=== PATIENT | male | born 1935 | race Caucasian/White ===

== ENCOUNTER 2018-08-05 07:00 | Inpatient (IN) ==
--- NOTE | 2018-07-23 14:35 | PAT Medication Instructions ---
Medication Instructions Date of Service July 23, 2018 Home Medications Circumin 2 tab PO QAM Flaxseed 3 - 4 tab PO DAILY Milk Thistle 1 tab PO QAM Natural Antibiotics 1 tab PO QAM Serrapeptase 2 tab PO QAM Vitamin B12 1 tab PO QAM Vitamin B6 1 tab PO QAM coenzyme Q10 [Co Q-10] 100 mg PO QAM ibuprofen [Advil] 200 mg PO BID lorazepam [Ativan] 0.5 - 1 mg PO DAILY PRN vitamin B complex 1 cap PO QAM ASK your surgeon for instructions ibuprofen [Advil] 200 mg PO BID STOP taking 2 weeks before surgery (or as soon as possible if surgery is within 2 weeks) Circumin 2 tab PO QAM Flaxseed 3 - 4 tab PO DAILY Milk Thistle 1 tab PO QAM Natural Antibiotics 1 tab PO QAM Serrapeptase 2 tab PO QAM coenzyme Q10 [Co Q-10] 100 mg PO QAM DO NOT take the morning of surgery Vitamin B12 1 tab PO QAM Vitamin B6 1 tab PO QAM vitamin B complex 1 cap PO QAM Take morning of surgery With a small sip of water, OTHERWISE NOTHING TO EAT OR DRINK AFTER MIDNIGHT: lorazepam [Ativan] 0.5 - 1 mg PO DAILY PRN (if needed) Other Notes If you have any questions please call us at [phone] or [phone] or [phone] or [phone]
--- NOTE | 2018-07-24 12:41 | Anesthesiology Consultation ---
Date of Service July 24, 2018 Assessment & Plan (1) Encounter for pre-operative examination: - PCP= 07/29/18= "cleared for surgical procedure as scheduled." Chart Review Chart Review: Acceptable Risk for Surgery and Patient seen in Pre Admission Testing Teaching & Discussion Pre-Anesthesia Teaching/Discussion Notes: Instructed NPO after midnight before surgery,except medications with 15 cc of water. Medication instructions provided according to the PAT guidelines. History Surgery Operation Date: 08/05/18 09:40 Proposed Procedures p Left Total Hip Arthroplasty - Jeremy Khan Eb Operation Date: 08/05/18 12:40 Proposed Procedures p Left Total Hip Arthroplasty - Jeremy Parson Height/Weight Height: 6 ft 2 in Weight: 93.8 kg Allergies Allergy/AdvReac Type Severity Reaction Status Date / Time ciprofloxacin [From Cipro] AdvReac Unknown AGGRAVATES Verified 07/19/18 09:53 ARTHRITIS PER PT Sulfa (Sulfonamide AdvReac Unknown WEAKNESS Verified 07/19/18 09:52 Antibiotics) ARMS-JOINT PROBLEMS Medications Home Medications Medication Instructions Recorded Confirmed Last Taken Circumin 2 tab PO QAM 07/19/18 07/19/18 Unknown Flaxseed 3 - 4 tab PO DAILY 07/19/18 07/19/18 Unknown Milk Thistle 1 tab PO QAM 07/19/18 07/19/18 Unknown Natural Antibiotics 1 tab PO QAM 07/19/18 07/19/18 Unknown Serrapeptase 2 tab PO QAM 07/19/18 07/19/18 Unknown Vitamin B12 1 tab PO QAM 07/19/18 07/19/18 Unknown Vitamin B6 1 tab PO QAM 07/19/18 07/19/18 Unknown coenzyme Q10 [Co Q-10] 100 mg PO QAM 07/19/18 07/19/18 Unknown ibuprofen [Advil] 200 mg PO BID 07/19/18 07/19/18 Unknown lorazepam [Ativan] 0.5 - 1 mg PO DAILY PRN 07/19/18 07/19/18 Unknown vitamin B complex 1 cap PO QAM 07/19/18 07/19/18 Unknown Bone restore 07/24/18 Unknown Eys Formula 07/24/18 Unknown Nattokinase enzyme 07/24/18 Unknown Nitic oxide fizz powder 07/24/18 Unknown Probiotic 07/24/18 Unknown Ray colostrum powder 07/24/18 Unknown alpha lipoic acid 07/24/18 Unknown digestive enzymes 07/24/18 Unknown garlic 07/24/18 Unknown potassium 07/24/18 Unknown vitamin [id number] acid 07/24/18 Unknown Past Medical History Medical History Diverticular disease [place] (hard of hearing) Osteoarthritis Prostate cancer S/P PROSTATECTOMY/RADIATION Past Family History Family History Aunt Family history of esophageal cancer Past Surgical History Surgical History History of appendectomy History of bowel resection 2/2 DIVERTICILITIS History of herniorrhaphy History of prostatectomy History of tonsillectomy Past Anesthesia History No Hx of Anesthesia Complications and No Family Hx of Anesthesia Complications History of PONV No Motion Sickness Screening History of Motion Sickness: No Social History Smoking Status: Former smoker tobacco type: cigarettes and cigars Do You Dip or Chew Tobacco: No Smoking End Date: QUIT 40+ YEARS AGO Hx Alcohol Use: Yes Alcohol type: beer and wine alcohol intake frequency: holidays/special occasions only Hx Substance Use: No Exercise / Class Metabolic Activity III < 4 Walking/Shop/Light housework (USES CANE PRN) Review of Systems Patient denies chest pain, shortness of breath, dyspnea on exertion, joint pain, reflux, cough, wheezing, palpitations. Physical Exam Vital Signs VITALS BP 132/84 P 67 TEMP 97.7 SP02 98%RA RESP 18 PHYSICAL Full neck and c-spine range of motion. Full TMJ range of motion. TMD 2 finger breaths Mallampati Score 3 Dentition: intact Lungs: clear throughout to auscultation Cardiac: regular rate and rhythm, no murmurs noted Spine: normal Carotid arteries: negative bruit Extremities: no edema Testing Electrocardiogram Date: 07/24/18 NSR at 68bpm. LAD. NS IVCD. NS STA. Chest X-Ray Date: 07/24/18 Findings: + NAD Degenerative changes are present within the dorsal spine with bridging calcification of the anterior longitudinal ligament Laboratory Results 07/24/18 13:00 07/24/18 13:00 Blood Type A Positive 07/24/18 13:00 Antibody Screen NEGATIVE 07/24/18 13:00 PT 10.9 Seconds (9.0-12.0) 07/24/18 13:00 INR 1.1 (0.9-1.1) 07/24/18 13:00 APTT 25.5 Seconds (21.0-31.0) 07/24/18 13:00 Hemoglobin A1c 5.8 % (4.5-5.6) H 07/24/18 13:00 Urine Color Dark Yellow 07/24/18 13:00 Urine Appearance Clear (Clear) 07/24/18 13:00 Urine pH 7.0 (4.5-7.5) 07/24/18 13:00 Ur Specific [place] 1.024 (1.000-1.030) 07/24/18 13:00 Urine Protein Negative (Negative) 07/24/18 13:00 Urine Glucose (UA) Negative (Negative) 07/24/18 13:00 Urine Ketones Trace (Negative) H 07/24/18 13:00 Urine Nitrite Negative (Negative) 07/24/18 13:00 Ur Leukocyte Esterase Negative (Negative) 07/24/18 13:00 07/24/18 13:00 Urine Culture - Final Urine,Clean Catch No growth - less than 1,000 colonies/mL.
--- NOTE | 2018-07-24 13:39 | XRay Report ---
XR chest Pre-admission PA/Lat CLINICAL HISTORY: Preoperative chest COMPARISON STUDY: No previous studies for comparison. FINDINGS: The cardiac and mediastinal contours are normal. There is no evidence of focal pulmonary co nsolidation. There is no evidence of failure. No pleural effusions are visualized.[ Degenerative junior ges are present within the dorsal spine with bridging calcification of the anterior longitudinal liga ment IMPRESSION: No active disease in the chest. Electronically signed by: Tod Alexandre M.D. 07/24/2018 1:38 PM
[2018-07-24 14:15] LABS: Appearance Urine Clear (Clear); Bilirubin Urine Negative (Negative); Blood Urine Negative (Negative); Color Urine Dark Yellow; Glucose Urine UA Negative (Negative); Ketones Urine Trace (Negative); Leukocyte Esterase Urine Negative (Negative); Nitrite Urine Negative (Negative); Protein Urine Negative (Negative); Specific Gravity Urine 1.024 (1.000-1.030); Urobilinogen Urine Negative (Negative)
[2018-07-24 14:18] LABS: Basophils # (auto) 0.07 K/uL (0-0.2); Basophils % (auto) 0.8 %; Eosinophils # (auto) 0.39 K/uL (0-0.5); Eosinophils % (auto) 4.3 %; Hematocrit (blood only) 39.5 % (42-52); Hemoglobin 12.9 g/dL (14.0-18.0); Immature Granulocytes # (auto) 0.02 K/uL (0.00-0.02); Immature Granulocytes % (auto) 0.2 %; Mean Corpuscular Hgb Conc 32.7 g/dL (32-36); Mean Corpuscular Volume 96.8 fL (80-100); Mean Platelet Volume 10.6 fL (7.4-10.4); Monocytes # (auto) 0.84 K/uL (0.11-0.59); Monocytes % (auto) 9.3 %; Neutrophils # (auto) 5.83 K/uL (1.4-6.5); Neutrophils % (auto) 64.4 %; Platelet Count 240 K/uL (130-400); RDW Coefficient of Variation 13.3 % (11.5-14.5); RDW Standard Deviation 46.7 fL (36.4-46.3); Red Blood Count 4.08 M/uL (4.7-6.1); White Blood Count 9.05 K/uL (4.8-10.8)
[2018-07-24 14:21] LABS: Albumin Level 3.9 gm/dl (3.4-5.0); BUN Creatinine Ratio 16.5 (10-20); Calcium 9.2 mg/dl (8.5-10.1); Est GFR (African American) 53.4; Est GFR (Non-African American) 46.1; Potassium 4.1 mmol/L (3.5-5.1)
[2018-07-24 14:24] LABS: Bilirubin,Total 0.4 mg/dl (0.2-1); Total Protein 7.9 gm/dl (6.4-8.2)
[2018-07-24 14:25] LABS: INR 1.1 (0.9-1.1); Partial Thromboplastin Ratio 0.9; Partial Thromboplastin Time 25.5 Seconds (21.0-31.0); Prothrombin Time 10.9 Seconds (9.0-12.0)
[2018-07-24 15:41] LABS: Estimated Average Glucose 120 mg/dl; Hemoglobin A1C 5.8 % (4.5-5.6)
--- NOTE | 2018-08-04 09:28 | History & Physical Report ---
Date of Service August 04, 2018 Assessment & Plan (1) Degenerative joint disease of left hip: Pt is to be admitted and undergo Left ELOISA. History of Present Illness Chief Complaint: Left hip pain Primary Care Provider: Delfina Steele Pt having severe left hip pain for years. cant do adls, has tried nsaids and PT. pt is ready for left ELOISA. Allergies Allergy/AdvReac Type Severity Reaction Status Date / Time ciprofloxacin [From Cipro] AdvReac Unknown AGGRAVATES Verified 07/19/18 09:53 ARTHRITIS PER PT Sulfa (Sulfonamide AdvReac Unknown WEAKNESS Verified 07/19/18 09:52 Antibiotics) ARMS-JOINT PROBLEMS Home Medications Home Medications Medication Instructions Recorded Confirmed Type Circumin 2 tab PO QAM 07/19/18 07/19/18 History Flaxseed 3 - 4 tab PO DAILY 07/19/18 07/19/18 History Milk Thistle 1 tab PO QAM 07/19/18 07/19/18 History Natural Antibiotics 1 tab PO QAM 07/19/18 07/19/18 History Serrapeptase 2 tab PO QAM 07/19/18 07/19/18 History Vitamin B12 1 tab PO QAM 07/19/18 07/19/18 History Vitamin B6 1 tab PO QAM 07/19/18 07/19/18 History coenzyme Q10 [Co Q-10] 100 mg PO QAM 07/19/18 07/19/18 History ibuprofen [Advil] 200 mg PO BID 07/19/18 07/19/18 History lorazepam [Ativan] 0.5 - 1 mg PO DAILY PRN 07/19/18 07/19/18 History vitamin B complex 1 cap PO QAM 07/19/18 07/19/18 History Bone restore 07/24/18 History Eys Formula 07/24/18 History Nattokinase enzyme 07/24/18 History Nitic oxide fizz powder 07/24/18 History Probiotic 07/24/18 History Ray colostrum powder 07/24/18 History alpha lipoic acid 07/24/18 History digestive enzymes 07/24/18 History garlic 07/24/18 History potassium 07/24/18 History vitamin [id number] acid 07/24/18 History Past Med/Surg History Medical History Diverticular disease [place] (hard of hearing) Osteoarthritis Prostate cancer S/P PROSTATECTOMY/RADIATION Surgical History History of appendectomy History of bowel resection 2/2 DIVERTICILITIS History of herniorrhaphy History of prostatectomy History of tonsillectomy Family History Aunt Family history of esophageal cancer Social History Preferred Language: Tongan Communication Ability: Effective Retail Services Professional Required: No Beliefs That Will Affect Care: None Current Living Situation: Spouse Other Information That Helps Us Care for You: No Feels Safe at Home: Yes Safety Concerns: Feels Safe At This Time Smoking Status: Former smoker Hx Alcohol Use: Yes Hx Substance Use: No Physical Exam Constitutional: WD/WN, vitals as above Neck: trachea midline, no thyromegaly Respiratory: normal respiratory effort, lungs clear to auscultation Cardiovascular: RRR, no murmur, no edema Gastrointestinal (Abdomen): normal bowel sounds, soft, nontender, no hepatosplenomegaly Musculoskeletal: Hip: + limited ROM of hip and + hip ROM with crepitation
[~2018-08-05 07:00] MED LIST: ACETAMINOPHEN 500 MG TAB PO SCH; BUPIVACAINE 0.5 % 5 MG/1 ML PF 10ML VIAL ONE; CEFAZOLIN 2000MG 2,000 MG/15 ML SYR IV SCH; CeleBREX 200 MG CAP PO SCH; FAMOTIDINE 20 MG TAB PO SCH; GABAPENTIN 300 MG x 3 PO SCH; LR 500ML BOLUS, THEN 15ML/HR IV SCH; LR 60ML/HR IV SCH; METOCLOPRAMIDE HCL 10 MG TABLET PO SCH; ROPIVACAINE 0.5% HCL/PF 150 MG, BUPIVACAINE 0.5% MPF 30 ML, EPINEPHrine 30MG/30ML (OR U... INFIL SCH; TRANEXAMIC ACID 1,000 MG **IV Intra-op IV SCH; TRANEXAMIC ACID 1,000 MG **IV Pre-op IV SCH; dexAMETHasone 4 MG TAB PO SCH
[2018-08-05] MEDS ORDERED: PROPOFOL IV EMULSION 10 MG/ML 20 ML VIAL IV ONE ×2 (07:52→09:54)
[2018-08-05] MEDS ORDERED: LIDOCAINE HCL 2% 2 ML VIAL/AMP(20MG/ML) INFIL ONE (07:52)
[2018-08-05] MEDS ORDERED: MIDAZOLAM HCL 1 MG/ML 2ML VIAL ONE (07:53)
[2018-08-05] MEDS ORDERED: fentaNYL citrate 100 MCG/2 ML VIAL ONE (07:53)
--- NOTE | 2018-08-05 08:24 | History & Physical Bridge Note ---
Date of Service August 05, 2018 History & Physical Bridge Note I have examined the patient, reviewed the History & Physical and in the interval since the performance of the History & Physical I have noted the following changes of clinical significance: no changes noted
[2018-08-05] MEDS ORDERED: ORTHO JOINT ANESTHETIC ONE (08:41)
[2018-08-05] MEDS ORDERED: BACITRACIN INJ 50,000 UNIT VIAL ONE (08:41)
[2018-08-05] MEDS ORDERED: POVIDONE-IODINE OP SOLN 30 ML BTL ONE (08:42)
[2018-08-05] MEDS ORDERED: fentaNYL citrate 100 MCG/2 ML VIAL IV PRN (09:00)
[2018-08-05] MEDS ORDERED: ePHEDrine sulfate 50 MG/ML AMP IV PRN (09:00)
[2018-08-05] MEDS ORDERED: ONDANSETRON INJ 2 MG/ML 2 ML VIAL IV PRN ×2 (09:00→12:50)
[2018-08-05] MEDS ORDERED: ATROPINE SULFATE 0.1 MG/ML 10ML SYR IV PRN (09:00)
[2018-08-05] MEDS ORDERED: ePHEDrine sulfate 50 MG/ML SYR ONE (09:54)
--- NOTE | 2018-08-05 10:25 | Operative Report ---
Post Operative Report Pre & Post Diagnosis Operation Date: 08/05/18 09:40 Pre-Op Diagnosis: Left Hip Degenerative Joint Disease Post-Op Diagnosis: Left Hip Degenerative Joint Disease Operation Date: 08/05/18 12:40 <No data on this case meets the specified criteria> Procedure Operation Date: 08/05/18 09:40 Actual Procedures p Left Total Hip Arthroplasty(Left) - Jeremy Parson Operation Date: 08/05/18 12:40 <No data on this case meets the specified criteria> Surgeon Jeremy Parson Compensation Manager Wes Clinton PA-C Estimated Blood Loss 20 Findings Consistent with Post-Op Diagnosis Specimens None Complications none Disposition Accompanied Patient To Recovery: No Disposition: Recovery Room Description of Procedure IMPLANTS USED: Sander size 60 mm Trident 2 Tritanium acetabular cup, one acetabular screw, a 36 mm X3 elevated liner, a #6 Accolade 2 stem with a 127 degree neck, 36 mm +5 ceramic head INDICATIONS: Mr. concepcion is a pleasant male who has unfortunately failed all forms of conservative measures. Therefore, they have has decided to undergo elective surgical intervention. All risks and benefits of the surgery were discussed with the patient and the family in entirety. PROCEDURE: The patient was brought to the operating room and properly identified by myself, anesthesia, and staff. Patient was given a spinal anesthetic and placed on the operating table with the left hip up. The hip was then prepped and draped in the standard orthopedic fashion. We made a standard posterolateral approach over the greater trochanteric area. We then dissected down to subcutaneous tissue until the fascia was identified. We incised the fascia in line with the skin incision. We then split the gluteus darvin muscles with finger dissection. We then put the Charnley retractor in place. We placed the retractor underneath the gluteus medius to expose the piriformis. The piriformis was then tagged with a tag suture and released from the insertion from the greater trochanteric area with the use of electrocautery. We then performed a T capsulotomy and the femoral head and neck were atraumatically dislocated. We then performed femoral neck osteotomy at the pre-template site. We removed the femoral head and neck without difficulty. We then placed the retractor around the acetabulum. We then began to ream the acetabulum to the appropriate size. We then impacted the cup into place and had a very good fixation within the pelvis. We then put the liner in place as well. Then using multiple size approaches from the [employer] 2 system a size #6 fit very nicely in the proximal femur. I then put trial components in place. WE had very good range of motion, excellent stability, and excellent leg length equality. We removed the trial components and irrigated the wound. We then impacted the components in place and irrigated the wound once more. We then closed the capsule and fascia with a 0 Vicryl suture, the deep dermis with 2-0 Vicryl suture, and finally the skin with a running 3-0 Vicryl subcuticular stitch. A sterile dressing was applied. The patient was taken to the recovery room in stable condition. Due to the complex nature of the procedure, the entire surgery was performed with the operational assistance of Wes Clinton PA-C. The physician assistant surgery was under direct supervision, was involved in the actual performance of all aspects of the surgical procedure including hemostasis, tissue retraction and incision, instrument management, patient positioning, and wound closure. I attest to the content of the Intraoperative Record and any orders documented therein. Any exceptions are noted below.
--- NOTE | 2018-08-05 12:38 | Anesthesiology Progress Note ---
Date of Service August 05, 2018 Anesthesia Post Procedure Vital Signs Vital Signs: Temp Pulse Pulse Resp BP BP Pulse Ox 08/05/18 12:31 64 16 126/63 98 08/05/18 12:30 73 18 99 08/05/18 12:26 65 18 133/64 99 08/05/18 12:25 73 16 99 08/05/18 12:21 63 15 138/66 99 08/05/18 12:20 65 12 100 08/05/18 12:16 71 19 126/65 98 08/05/18 12:15 97.2 F L 74 17 99 08/05/18 12:11 80 12 133/81 99 08/05/18 12:10 68 13 99 08/05/18 12:06 64 13 128/66 99 08/05/18 12:05 80 18 98 08/05/18 12:02 63 12 99 08/05/18 12:01 66 9 L 120/68 98 08/05/18 12:00 63 13 99 08/05/18 11:56 64 3 L 129/66 99 08/05/18 11:55 63 4 L 99 08/05/18 11:51 61 21 131/71 99 08/05/18 11:50 60 19 100 08/05/18 11:46 65 21 124/76 100 08/05/18 11:45 58 L 18 100 08/05/18 11:41 57 L 9 L 124/72 100 08/05/18 11:40 57 L 16 100 08/05/18 11:36 60 15 123/75 99 08/05/18 11:35 60 17 100 08/05/18 11:31 97.7 F 59 L 63 21 130/72 130/72 100 08/05/18 11:30 69 21 99 08/05/18 11:27 60 18 100 08/05/18 11:26 59 L 16 121/69 100 08/05/18 11:25 55 L 15 100 08/05/18 11:21 58 L 14 122/66 100 08/05/18 11:20 58 L 11 L 100 08/05/18 11:17 97.2 F L 56 L 56 L 10 L 118/76 100 08/05/18 11:16 57 L 9 L 118/76 100 08/05/18 11:15 67 17 99 08/05/18 11:11 56 L 10 L 134/68 100 08/05/18 11:10 69 12 100 08/05/18 11:06 66 10 L 127/79 100 08/05/18 11:05 61 18 100 08/05/18 11:01 67 12 129/66 100 08/05/18 11:00 67 9 L 100 08/05/18 10:57 70 15 100 08/05/18 10:56 63 14 103/53 L 100 08/05/18 10:55 62 14 100 08/05/18 10:52 65 16 101/62 100 08/05/18 10:50 67 19 100 08/05/18 10:45 64 20 100 08/05/18 10:41 80 15 105/59 L 100 08/05/18 10:40 61 3 L 100 08/05/18 10:39 64 9 L 95/57 L 100 08/05/18 10:38 97.5 F L 71 64 12 95/57 L 99 08/05/18 08:02 97.9 F 73 20 161/90 H 98 Notes Mental Status: alert / awake / arousable and participated in evaluation Patient Amnestic to Procedure: Yes Nausea / Vomiting: adequately controlled Pain: adequately controlled Airway Patency, RR, SpO2: stable & adequate BP & HR: stable & adequate Hydration State: stable & adequate Neuraxial Anesthesia: was administered and sensory block is resolving Anesthetic Complications: no major complications apparent and Pt Satisfied with anesthetic care
[2018-08-05] MEDS ORDERED: OXYCODONE HCL IR 5 MG TAB (IMMEDIATE RELEASE) PO PRN (12:50)
[2018-08-05] MEDS ORDERED: METOCLOPRAMIDE HCL INJ 5 MG/ML 2 ML VIAL IV PRN (12:50)
[2018-08-05] MEDS ORDERED: TRAMADOL HCL 50 MG TABLET PO PRN (12:50)
[2018-08-05] MEDS ORDERED: NALOXONE HCL 0.4 MG/1 ML VIAL/CARP IV PRN (12:50)
[2018-08-05] MEDS ORDERED: MAGNESIUM HYDROXIDE SUSP 30 ML UDC PO PRN (12:50)
[2018-08-05] MEDS ORDERED: BISACODYL 10 MG SUPP PR PRN (12:50)
[2018-08-05] MEDS: SODIUM CHLORIDE 0.9% 1000ML 1,000 ML IV SCH (13:59)
[2018-08-05] MEDS ORDERED: TRANEXAMIC ACID 1,000 MG in 0.9 % SODIUM CHLORIDE 100 ML IV SCH (16:00)
[2018-08-05] MEDS: CEFAZOLIN 2000MG 2,000 MG/15 ML SYR IV SCH (17:09)
[2018-08-05] MEDS: DOCUSATE SODIUM 100 MG CAP PO SCH (20:16)
[2018-08-05] MEDS: ASPIRIN 81 MG ECTAB PO SCH (20:16)
[2018-08-05] MEDS ORDERED: SENNA 8.6 MG TAB PO SCH (21:00)
[2018-08-05] MEDS ORDERED: LORazepam 1 MG TAB PO ONE (21:00)
[2018-08-06] MEDS: SODIUM CHLORIDE 0.9% 1000ML 1,000 ML IV SCH (00:11)
[2018-08-06] MEDS: CEFAZOLIN 2000MG 2,000 MG/15 ML SYR IV SCH (00:11)
[2018-08-06 05:55] LABS: Basophils # (auto) 0.01 K/uL (0-0.2); Basophils % (auto) 0.1 %; Hematocrit (blood only) 33.3 % (42-52); Hemoglobin 11.1 g/dL (14.0-18.0); Immature Granulocytes # (auto) 0.02 K/uL (0.00-0.02); Immature Granulocytes % (auto) 0.2 %; Lymphocytes # (auto) 0.89 K/uL (1.2-3.4); Mean Corpuscular Hgb Conc 33.3 g/dL (32-36); Mean Corpuscular Volume 93.8 fL (80-100); Mean Platelet Volume 9.8 fL (7.4-10.4); Monocytes # (auto) 1.19 K/uL (0.11-0.59); Monocytes % (auto) 10.7 %; Neutrophils # (auto) 9.06 K/uL (1.4-6.5); Platelet Count 207 K/uL (130-400); RDW Coefficient of Variation 13.3 % (11.5-14.5); Red Blood Count 3.55 M/uL (4.7-6.1); White Blood Count 11.17 K/uL (4.8-10.8)
[2018-08-06 06:30] LABS: BUN Creatinine Ratio 15.1 (10-20); Calcium 8.3 mg/dl (8.5-10.1); Creatinine Clr Calc Pharmacy 51.5 ml/min; Est GFR (African American) 61.8; Est GFR (Non-African American) 53.3; Potassium 4.1 mmol/L (3.5-5.1)
[2018-08-06] MEDS ORDERED: dexAMETHasone 10 MG in SYRINGE 0 ML IV SCH (08:00)
--- NOTE | 2018-08-06 08:14 | Anesthesiology Progress Note ---
Date of Service August 06, 2018 Anesthesia Post Procedure Vital Signs Vital Signs: Temp Pulse Pulse Pulse Resp BP BP 08/06/18 07:00 36.5 C 70 16 130/70 08/06/18 04:01 36.7 C 63 14 136/80 08/05/18 23:21 36.6 C 73 14 149/82 H 08/05/18 19:51 36.9 C 69 16 134/74 08/05/18 15:45 36.5 C 78 16 154/81 H 08/05/18 14:42 75 18 139/71 08/05/18 13:37 68 18 143/82 H 08/05/18 13:07 67 18 134/73 08/05/18 12:40 36.5 C 68 16 127/73 08/05/18 12:31 64 16 126/63 08/05/18 12:30 73 18 08/05/18 12:26 65 18 133/64 08/05/18 12:25 73 16 08/05/18 12:21 63 15 138/66 08/05/18 12:20 65 12 08/05/18 12:16 71 19 126/65 08/05/18 12:15 36.2 C L 74 17 08/05/18 12:11 80 12 133/81 08/05/18 12:10 68 13 08/05/18 12:06 64 13 128/66 08/05/18 12:05 80 18 08/05/18 12:02 63 12 08/05/18 12:01 66 9 L 120/68 08/05/18 12:00 63 13 08/05/18 11:56 64 3 L 129/66 08/05/18 11:55 63 4 L 08/05/18 11:51 61 21 131/71 08/05/18 11:50 60 19 08/05/18 11:46 65 21 124/76 08/05/18 11:45 58 L 18 08/05/18 11:41 57 L 9 L 124/72 08/05/18 11:40 57 L 16 08/05/18 11:36 60 15 123/75 08/05/18 11:35 60 17 08/05/18 11:31 36.5 C 59 L 63 21 130/72 130/72 08/05/18 11:30 69 21 08/05/18 11:27 60 18 08/05/18 11:26 59 L 16 121/69 08/05/18 11:25 55 L 15 08/05/18 11:21 58 L 14 122/66 08/05/18 11:20 58 L 11 L 08/05/18 11:17 36.2 C L 56 L 56 L 10 L 118/76 08/05/18 11:16 57 L 9 L 118/76 08/05/18 11:15 67 17 08/05/18 11:11 56 L 10 L 134/68 08/05/18 11:10 69 12 08/05/18 11:06 66 10 L 127/79 08/05/18 11:05 61 18 08/05/18 11:01 67 12 129/66 08/05/18 11:00 67 9 L 08/05/18 10:57 70 15 08/05/18 10:56 63 14 103/53 L 08/05/18 10:55 62 14 08/05/18 10:52 65 16 101/62 08/05/18 10:50 67 19 08/05/18 10:45 64 20 08/05/18 10:41 80 15 105/59 L 08/05/18 10:40 61 3 L 08/05/18 10:39 64 9 L 95/57 L 08/05/18 10:38 36.4 C L 71 64 12 95/57 L Pulse Ox 08/06/18 07:00 98 08/06/18 04:01 99 08/05/18 23:21 99 08/05/18 19:51 96 08/05/18 15:45 98 08/05/18 14:42 100 08/05/18 13:37 100 08/05/18 13:07 100 08/05/18 12:40 98 08/05/18 12:31 98 08/05/18 12:30 99 08/05/18 12:26 99 08/05/18 12:25 99 08/05/18 12:21 99 08/05/18 12:20 100 08/05/18 12:16 98 08/05/18 12:15 99 08/05/18 12:11 99 08/05/18 12:10 99 08/05/18 12:06 99 08/05/18 12:05 98 08/05/18 12:02 99 08/05/18 12:01 98 08/05/18 12:00 99 08/05/18 11:56 99 08/05/18 11:55 99 08/05/18 11:51 99 08/05/18 11:50 100 08/05/18 11:46 100 08/05/18 11:45 08/05/18 11:41 100 08/05/18 11:40 100 08/05/18 11:36 99 08/05/18 11:35 100 08/05/18 11:31 100 08/05/18 11:30 99 08/05/18 11:27 100 08/05/18 11:26 100 08/05/18 11:25 100 08/05/18 11:21 100 08/05/18 11:20 100 08/05/18 11:17 100 08/05/18 11:16 100 08/05/18 11:15 99 08/05/18 11:11 100 08/05/18 11:10 100 08/05/18 11:06 100 08/05/18 11:05 100 08/05/18 11:01 100 08/05/18 11:00 100 08/05/18 10:57 100 08/05/18 10:56 100 08/05/18 10:55 100 08/05/18 10:52 100 08/05/18 10:50 100 08/05/18 10:45 100 08/05/18 10:41 100 08/05/18 10:40 100 08/05/18 10:39 100 08/05/18 10:38 99 Notes Mental Status: alert / awake / arousable and participated in evaluation Patient Amnestic to Procedure: Yes Nausea / Vomiting: adequately controlled Pain: adequately controlled Airway Patency, RR, SpO2: stable & adequate BP & HR: stable & adequate Hydration State: stable & adequate Neuraxial Anesthesia: was administered and sensory block resolved Anesthetic Complications: no major complications apparent and Pt Satisfied with anesthetic care
[2018-08-06] MEDS: ASPIRIN 81 MG ECTAB PO SCH (08:36)
[2018-08-06] MEDS: DOCUSATE SODIUM 100 MG CAP PO SCH (08:36)
--- NOTE | 2018-08-06 13:42 | Orthopedic Progress Note ---
Date of Service August 06, 2018 Assessment & Plan (1) Degenerative joint disease of left hip: Status post left total hip arthroplasty Postoperative day #1 -Ancef x24 -DVT prophylaxis ASA 81 mg twice daily, SCDs and teds -Weight-bear as tolerates left lower extremity -A.m. labs hemoglobin 11.1 -Posterior hip precaution -PT OT -DC planning home with home health today Subjective Post Operative Progress Note Patient seen sitting in chair and bedside, comfortable, denies complaints, pain well controlled, no acute issues. Physical Exam Vital Signs (Past 24 Hours): Last Vital Signs Temp 36.5 C 08/06/18 12:00 Pulse 69 08/06/18 12:00 Resp 16 08/06/18 12:00 BP 139/76 08/06/18 12:00 Pulse Ox 96 08/06/18 12:00 Physical Exam: LLE NVSI +EHL/FHL/TA/GS SILT grossly, +2 DP pulse, compartments soft NT, dressing cdi. Constitutional: WD/WN, vitals as above
--- NOTE | 2018-08-13 13:42 | Discharge Summary ---
DISCHARGE DIAGNOSIS: Degenerative joint disease, left hip. SECONDARY DIAGNOSES: Diverticular disease, hearing loss, osteoarthritis, history of prostate carcinoma. CONSULTS: None. COMPLICATIONS: None. PROCEDURES: Left total hip arthroplasty performed by Dr. Parson on 08/05/2018. BRIEF HISTORY: As dictated in history and physical. HOSPITAL SUMMARY: The patient was admitted on the above-noted date and had the above-noted surgery performed which he tolerated well. On his first postoperative day, he was sitting in the chair at bedside and was comfortable, had no complaints. Pain was controlled. He had no acute issues. Vital signs were stable. He was afebrile. Dressings clean, dry and intact. Calves were soft, nontender. Neurovascularly was intact. Toes were mobile and he was started on physical therapy protocol and continued on DVT prophylaxis and pain management. Hemoglobin was 11.1 and after going through his physical therapy that morning he was progressing well with his PT and was remaining stable and it was felt he could be discharged to home with home health services. For further review, please see chart. LABORATORY AND X-RAY DATA: As per chart. DISCHARGE INSTRUCTIONS: The patient was discharged to home in satisfactory condition on 08/06/2018. DIET: Regular. ACTIVITY: Weightbearing as tolerated left lower extremity with walker. Follow ELOISA instruction sheets per Dr. Parsno's written instructions and follow up with him in 2 weeks. The patient to call for appointment if one has not been made for you. DISCHARGE MEDICATIONS: Aspirin 81 mg p.o. b.i.d., cefadroxil 500 mg p.o. b.i.d., oxycodone 5-10 mg p.o. q. 4 hours p.r.n., sennosides 17.2 mg p.o. at bedtime. Resume home meds as listed. Stop taking ibuprofen.
== END 2018-08-06 15:30 | disposition home health service (06) | DRG 470 ==
LOC: ASU 07:00 → 3E 10:44